=== PATIENT | female | born 1945 | race Caucasian/White ===

== ENCOUNTER 2021-03-02 16:04 | Emergency (ER) | payer OTHER, SELFPAY ==
[2021-03-02 16:18] VITALS: PULSE 70; RESP 16; TEMP 36.4; O2SAT 99; BMI 27.1
--- NOTE | 2021-03-02 16:27 | ED_ITS ---
HPI - General Adult General Chief complaint: Recheck/Abnormal Lab/Rx Stated complaint: hypoglycemia, unresponsive Time Seen by Provider: 03/02/21 17:03 Source: patient and EMS Mode of arrival: EMS Limitations: no limitations History of Present Illness HPI narrative: 75-year-old female presents via EMS from jail facility for hypoglycemia. It was noted that she was found unresponsive, Nursing took blood sugar and found it to be in the 30s, EMS repeated blood sugar was 48, was given 12 g of glucose on transit. Patient is alert and oriented to self at this time. It was also reported that nursing told EMS that patient did not eat breakfast or lunch, and is unsure if she has had any p.o. fluids today. Onset (ago): hour(s) Severity: moderate Associated symptoms: malaise Treatments prior to arrival: other (Glucose) Related Data Allergies Allergy/AdvReac Type Severity Reaction Status Date / Time No Known Allergies Allergy Verified 03/02/21 16:37 Review of Systems Review of Systems: Constitutional: Positive fatigue, No Fever, No Chills ENT/Mouth: No Ear Pain, No Hoarseness, No sore throat Eyes: No Eye Pain, No Swelling, No Redness, No Foreign Body Cardiovascular: No Chest Pain, No SOB Respiratory: No Cough, No Dyspnea Gastrointestinal: No Nausea, No Vomiting, No Diarrhea, No abdominal Pain Genitourinary: No Dysuria, No Hematuria Musculoskeletal: No joint pain, No Myalgias, No Joint Swelling Skin: No Skin lacerations, No rash Neuro: No Weakness, No Numbness, No Paresthesias, No Loss of Consciousness, No Dizziness, No Headache Psych: No Anxiety/Panic, No Depression Heme/Lymph: no easy bruising, no Lymphadenopathy Endocrine: No Polyuria, No Polydipsia Yes all other systems are reviewed and are negative [facility] Past Medical History Attestation statement: The following information was validated with the patient. Source: old records reviewed Social History Social History Patient Tobacco Use Status: Never used Tobacco Use of substances other than those prescribed or required for medical reasons: No Advance Directives: Yes Advance Directives Information Provided: Yes (Paperwork too dark to scan) Advance Directives on File: No Advance Directives Date on File: 03/02/21 Physical Exam Vital Signs: Vital Signs: Last Vital Signs Temp 97.5 F 03/02/21 16:48 Pulse 70 03/02/21 16:48 Resp 18 03/02/21 16:48 BP 102/57 L 03/02/21 16:48 Pulse Ox 97 03/02/21 16:48 Body Mass Index 27.1 Appearance: Alert. Oriented to self. No acute distress. Eyes: Pupils equal, round and reactive to light. ENT: Pharynx normal. Neck: Normal inspection. Neck supple. CVS: Normal heart rate and rhythm. Pulses normal. Respiratory: No respiratory distress. Breath sounds normal. Abdomen: Soft and nontender. Skin: Skin warm and dry. Normal skin color. Normal skin turgor. Extremities: No lower extremity edema. Neuro: No sensory deficit. Course Course Course Narrative: 75-year-old female with past medical history of vascular dementia, anxiety, insulin-dependent type 2 diabetes, diastolic heart failure, COPD, obesity, anemia, hypothyroidism, failure to thrive, central retinal vein occlusion to the right eye, hyperlipidemia, open angle glaucoma, paroxysmal AFib, major depressive disorder, macular degeneration presents from a jail facility for unresponsiveness and hypoglycemia with a blood glucose of 39. She did received 12 g of glucose on transit or at the facility, currently her blood sugar is 199. We will cycle blood sugars every 30 minutes for the next hour and a half. If patient maintains fingerstick blood sugars within normal range we will discharge to her facility. After review of records it is noted that she received 43 units of Levemir every morning and gets fingerstick blood sugar monitoring once a week. It is also noted that the Levemir order does not specify that insulin must be given with or within 15 minutes of a meal. I did discuss my findings with FERNANDO Pacheco, who is a nurse at the facility who found her unresponsive. I did strongly recommend changing the Levemir order as well as fingerstick blood sugar monitoring. Blood sugars remain over 100, I did give 1 L of fluid as her blood pressures were a bit soft upon arrival. Patient is hemodynamically stable, alert and oriented to self per baseline. She does have a history of vascular dementia plan of care is to discharge to jail facility Medical Decision Making Differential Diagnosis Differential Diagnosis: Hypoglycemia secondary to insulin and poor p.o. intake Medical Records Medical records reviewed: Yes I reviewed the patient's medical records. Lab Data Lab results reviewed: Yes I reviewed the patient's lab results. Labs: Lab Results 03/02/21 03/02/21 03/02/21 Range/Units 16:04 17:10 17:49 POC Glucose 199 H 150 H 104 (60-115) mg/dL Discharge Plan Discharge Clinical Impression: Hypoglycemia Patient Disposition: Home, Self-Care Instructions: Hypoglycemia in a Person with Diabetes (ED) Additional Instructions: Ms. Marshall was evaluated for hypoglycemia. It is noted that she takes 43 units of Levemir every morning, I also noted in her records that she only gets a blood sugar once a week. Patients that take insulin on a daily basis must get their blood sugars drawn on a daily basis, at least 3 times a day, to monitor for hypoglycemia. EMS report indicated that she had not eaten breakfast or lunch. It is standard practice to give Levemir or any kind of insulin with or within 15 minutes of meals. This patient must have blood sugars taken every shift to ensure proper blood sugar levels. You must also ensure that your patient that receives insulin received a meal. Please amend your Levemir order. Levemir must be given with or 15 minutes prior to meals. Please amend her fingerstick blood sugar orders, discontinue fasting blood sugar twice daily weekly on Mondays. New order: Fingerstick Blood sugar t.i.d. Q shift. Thank you for choosing this emergency department for evaluation. Please follow-up with primary care physician as needed. Return to the emergency department for any new, concerning, or worsening symptoms. Interventions: ED Discharge Assessment Last Done: 03/02/21 19:54 Discharge Date/Time: 03/02/21 19:58
[2021-03-02 16:48] VITALS: BP 102/57; PULSE 70; RESP 18; TEMP 36.4; O2SAT 97
[2021-03-02] MEDS: 0.9 % Sodium Chloride 1,000 ML 999 ML IVCONT (16:48)
--- NOTE | 2021-03-02 17:17 | PC.NURSE ---
Pt alert, oriented to person and place, denies pain. Pt insulin dependent diabetic. Per ems report [facility] facility called for transfer to ed due to POC of 34 and pt unresponsive. EMS reports pt remained unresponsive for a few minutes of transport. 12g of glucagon was given by ems bringing POC to 48. Pt alert, oriented, speaking in full sentences on arrival to ed. POC 199. Pt remains alert and responsive. Fluids given, tolerated well. Current POC 150, Ed provider notified. Pt resting quietly, no apparent distress.
--- NOTE | 2021-03-02 18:15 | PC.NURSE ---
Pt alert and oriented, current poc 104, the ed provider caring for pt made aware. Verbal report was given by MAR Rubio to receiving nurse Kalina Regalado at [facility].
[2021-03-02 18:44] LABS: Glucose, Whole Blood 150 mg/dL (60-115)
[2021-03-02 18:44] LABS: Glucose, Whole Blood 199 mg/dL (60-115)
[2021-03-02 18:44] LABS: Glucose, Whole Blood 104 mg/dL (60-115)
== END 2021-03-02 19:58 | disposition home or self-care (01) ==
PROVIDERS: Emergency Provider Internal Medicine; PCP Internal Medicine
DX: E11.649 Type 2 diabetes mellitus with hypoglycemia without coma (principal); I50.30 Unspecified diastolic (congestive) heart failure; F01.50 Vascular dementia, unspecified severity, without behavioral disturbance, psychotic disturbance, mood disturbance, and anxiety; J44.9 Chronic obstructive pulmonary disease, unspecified; Z79.4 Long term (current) use of insulin
CPT/HCPCS: 82947; 96360; 99284